=== PATIENT | male | born 1960 | race Caucasian/White ===

== ENCOUNTER 2024-02-25 19:05 | Inpatient (IN) | payer OTHER, SELFPAY ==
[2024-02-25] VITALS (11 sets, daily range): BP systolic 100–157; BP diastolic 41–82; BMI 23.2
--- NOTE | 2024-02-25 17:57 | ED.GENMED ---
History of Present Illness
General
Chief Complaint: Heart Rate Problem
Source: patient and spouse
Exam Limitations: none
Time Seen by Provider: 02/25/24 17:48
Nursing documentation reviewed up to this point in time: agreed with
History of Present Illness
History of Present Illness:
63-year-old male with past medical history of hypertension, hyperlipidemia, atrial fibrillation on Eliquis (noncompliant) who presents to the emergency department with his for evaluation of shortness of breath and lightheadedness. Patient
reports that symptoms started 2 to 3 days ago and have been constant and worsening. Came to the emergency room today to be evaluated. He denies any chest pain. He denies any swelling or pain in the legs. He denies any cough or fever. He denies
any other complaints. Noted to be markedly bradycardic in triage�previously on metoprolol but he reports he has not been taking this medication for quite some time.
Past History
Past History
ED Past Medical History: Arrthythmia (AFib), CHF, COPD, GERD and HTN; Negative Renal failure
ED Past Surgical History: Cardiac (ablation x 2) and Other (left eye removed 2 to trauma)
Social History
Tobacco: Smoker
Alcohol: Chronic alcoholic (States last drink 12/29/2022)
Drug: None
Personal:
Living: with family
Family History
Family History: Negative Diabetes, Hypertension or CAD
Review of Systems
Review of Systems
All Other Systems: ROS reviewed and negative except as documented in HPI and ROS
Constitutional: Reports fatigue; Denies fever
Respiratory: Reports trouble breathing; Denies cough
Cardiac: Denies chest pain or palpitations
ABD/GI: Denies abdominal pain
: Denies flank pain
Musculoskeletal: Denies edema, neck pain or back pain
Neurological: Reports dizzy; Denies headache
Phy Exam
Physical Exam
Physical Exam:
General: Awake, alert, oriented x3; no acute distress
Head: Normocephalic, atraumatic
Eyes: Conjunctiva normal
Throat: Airway intact, handling secretions
Neck: Trachea midline, no JVD
Lungs: Clear to auscultation bilaterally, no wheezing, rales, rhonchi
Heart: Bradycardia with regular rhythm, no murmurs, gallops, or rubs
Neuro: No gross deficits
Extremities: No edema in extremities, equal pulses in all extremities
Course
Orders/Labs/Results
Orders:
Orders
02/25/24 17:40
EKG [Electrocardiogram (*1)] Urgent
Reason for Study: Shortness of Breath
EKG- Treatment ONCE
02/25/24 17:49
Complete Blood Count/With Diff Urgent
Comprehensive Metabolic Panel Urgent
PTT Urgent
Prothrombin Time Urgent
TSH Reflex To Free T4 Urgent
Troponin I Urgent
02/25/24 17:51
Atropine Sulfate [Atropine 0.1 mg/ml Syringe] 1 mg .ROUTE .STK-MED ONE
02/25/24 17:57
CARDIOLOGY CONSULT Urgent
Consulting Provider: Zay Jenkins
Was physician already notified: Yes
Vital Signs
Initial and Last Documented VS:
Initial Vital Signs
Pulse Resp Pulse Ox
34 14 100
02/25/24 17:48 02/25/24 17:48 02/25/24 17:48
Last Documented Vital Signs
Temp Pulse Resp BP Pulse Ox
36.7 C 32 9 157/59 100
02/25/24 17:49 02/25/24 17:52 02/25/24 17:52 02/25/24 17:52 02/25/24 17:52
MDM/Problems Addressed
Differential Diagnosis Includes:
Complete heart block
MDM/Problems Addressed:
63-year-old male with history as documented presents to the emergency room with shortness of breath and lightheadedness; his EKG in triage shows complete heart block with a heart rate of 35. He was immediately brought back to a room, pacer pads
applied. Placed on a supply chain logistics manager. Large-bore IV access established will send off labs including a CBC and a CMP, thyroid studies. Case was discussed with cardiology and interventionalist�plan to take to [facility] for temporary pacemaker
tonight. Case discussed with hospitalist for admission.
Chronic conditions affecting care:
Atrial fibrillation
*Pulse Oximetry
Patient hypoxic: no
*EKG
Interpreted by ED Provider?: Yes
Heart Rate: 35
Rate: bradycardiac
Rhythm: sinus
[place]: left axis deviation
Interval: third degree heart block
*Critical Care Note
Total Time (30-74mins, 75-104mins- exclusive of procedures): 31
comment:
Critical care statement: A total of 31 minutes of critical care time was provided for this patient. This includes management of unstable vital signs, evaluation of the patient at bedside, frequent reassessment, discussion with
consultants/hospitalist, and review of pertinent medical records. This time was separate from time utilized to perform any aforementioned documented procedures
Data Reviewed
Review of Other/Old Records Reveals: Labs and Records
Source: patient, records and spouse
Patient Management
Discussion with other providers: Hospitalist (Discussed with hospitalist) and In Classroom Tutor (Discussed with web marketing strategist)
Escalation/DeEscalation of care consider admission/obs:
Admission indicated
ED Attending Note
-
Portions of this chart may have been created with voice recognition software.� Occasional wrong word or��sound alike� substitutions may have occurred due to the inherent limitations of voice recognition software.
Discharge Plan
Departure
Patient Disposition: Admit
Date of Disposition: 02/25/24
Time of Disposition: 17:56
Admit to doctor: Jose
Presentation/result/management discussed w/ accepting MD/DO: Hospitalist
Discharge Problem:
Complete heart block
Prescriptions:
No Action
Eliquis 5 mg tablet
5 mg PO BID Qty: 1 0RF
pantoprazole 40 mg Tablet,Delayed Release (Dr/Ec)
40 mg PO DAILY 30 Days Qty: 30 0RF
furosemide [Lasix] 20 mg Tablet
20 mg PO DAILY
albuterol sulfate [ProAir HFA] 90 mcg/actuation HFA aerosol inhaler
2 puff inhalation R Q6HPRN PRN (Reason: shortness of breath or wheezing)
nicotine 14 mg/24 hr Patch 24 Hour
14 mg transdermal DAILY Qty: 0 0RF
thiamine HCl (vitamin B1) 100 mg Tablet
100 mg PO DAILY Qty: 30 0RF
metoprolol succinate 50 mg tablet extended release 24 hr
50 mg PO DAILY Qty: 0 0RF
Interventions
Interventions:
*Risk Screen - Suicide Last Done: 02/25/24 17:49
*General Assessment Last Done: 02/25/24 17:49
*Neglect/Abuse Screening Last Done: 02/25/24 17:49
ED- Fall Risk Assessment Last Done: 02/25/24 17:49
*ED COVID-19 Vaccine History Last Done: 02/25/24 17:49
ED- Cardiac Assessment Last Done: 02/25/24 17:55
ED- Pulmonary Assessment Last Done: 02/25/24 17:56
Discharge Date and Time
Print Language: ITALIAN
[2024-02-25 18:05] LABS: % Basophils 0.7 % (0-2); % Eosinophils 3.2 % (0-6); % Immature Granulocytes 0.4 % (0-0.5); % Lymphocytes 22.7 % (20.5-51.1); % Monocytes 13.3 % (1.7-9.3); % Neutrophils 59.7 % (42.2-75.2); Absolute Basophils 0.1 10^3/uL (0-0.2); Absolute Eosinophils 0.3 10^3/uL (0-0.7); Absolute Lymphocytes 2.2 10^3/uL (1.2-3.4); Absolute Monocytes 1.3 10^3/uL (0.1-0.6); Absolute Neutrophils 5.7 10^3/uL (1.4-6.5); Hematocrit 34.6 % (39.0-52.0); Hemoglobin 11.9 g/dL (13.0-18.0); Mean Corp Hgb Conc. 34.4 g/dL (33.0-37.0); Mean Corpuscular Hgb 33.1 pg (27.0-31.0); Mean Corpuscular Volume 96.1 fL (80.0-94.0); Mean Platelet Volume 10.4 fL (7.4-10.4); Nucleated Red Blood Cells % 0 % (-); Platelet Count 148 10^3/uL (130-400); Red Cell Dist. Width 15.2 % (11.5-14.5); White Blood Cell Count 9.6 10^3/uL (4.8-10.8)
--- NOTE | 2024-02-25 18:05 | CON.CAR ---
Consultation
Consultation Request
Date/Time Consultation Requested: 02/25/2024;
Date/Time Consultation Performed: 02/25/2024; 18:05
Requesting Provider: Tommy Oneal Jr., D.O.
Performing Provider: Mateo Moore D.O.
Reason for Consultation: Complete heart block.
Medical History
-
Chief Complaint: Shortness in breath with ambulation, prior syncope.
History of Present Illness:
63 y/o male with TBI (per MRI), alcohol use disorder, tobacco abuse with COPD, non-ischemic cardiomyopathy with HFmEF (LVEF 44%), AF/Flutter s/p ablation x2 ([facility] PVI on 12/08/2022, prior flutter ablation) and RBBB presenting with worsening shortness
in breath. The patient reports abrupt onset of symptoms yesterday, worsening today. He can no longer ambulate > 12 feet without severe shortness in breath. He admits to fatigue. He admits to orthostasis but denies syncope. His is present
and reports prior episodes of syncope in the past few months. The patient was previously hospitalized for syncope in January 2023. There was no obvious cardiac source at the time. He was continued on metoprolol and apixaban at that
time. The patient reports stopping all medications several months ago. On presentation, EKG showed complete heart block with ventricular escape at 35 bpm. Cardiology was consulted for assistance with management.
In the ER, the patient's weight is stable. BP stable with HR of 36 bpm. External pacing pads have been applied. He denies joint pains or rashes. He denies probability of tick exposure.
DATA:
TTE, 01/11/2023:
CONCLUSIONS
Normal LV size with mildly reduced systolic function.
Left ventricular ejection fraction is 44% by Olivo' s method.
Global hypokinesis.
Paradoxical septal motion consistent with conduction disease.
Indeterminate diastolic function.
Normal right ventricular size and function.
No significant valvular disease.
Compared to prior on December 24, 2022, there is no significant change.
MRI Brain, 01/12/2024:
IMPRESSION:
There is encephalomalacia and abnormal increased FLAIR signal within the inferior and anterior frontal lobes, left greater than right, compatible with changes from previous traumatic brain injury.
Patchy areas of volume loss and increased FLAIR signal within the left temporal lobe as well, which are most likely from previous traumatic brain injury.
Small focus of volume loss and increased FLAIR signal within the right paramedian parietal lobe. In this location, this is most likely from a small focus of old infarction, although posttraumatic injury could also be possible.
Moderate diffuse atrophy, advanced for the patient's age of 62 years.
Mild to moderate periventricular leukomalacia.
Cardiac Catheterization, 11/27/2021:
CONCLUSIONS
1: Normal coronary arteries
Past Medical History
Past Medical History: Arrhythmias (Atrial fibrillation/flutter, RBBB.), CHF and COPD
Past Surgical History: Cardiac (Aflutter ablation, [facility] PVI ablation.)
Social History
Tobacco: Smoker
Alcohol: Daily
Drug: None
Personal:
Living: With Family
Employment: Employed
Family History
Family History: Reviewed & Not Pertinent
Allergies / Home Medications
Allergy/AdvReac Type Severity Reaction Status Date / Time
No Known Allergies Allergy Verified 12/08/22 11:22
�Medication �Instructions �Recorded �Confirmed �Type
No Meds [No Current Medications] 02/25/24 02/25/24 History
Review of Systems
-
History Source: Patient and Family
All other systems: Negative unless noted
Constitutional: No Symptoms
EENT: No Symptoms
Respiratory: Trouble Breathing
Cardiac: Syncope
Abdomen/GI: No Symptoms
Musculoskeletal: No Symptoms
Skin: No Symptoms
Neurological: Dizzy
Physical Exam
Vital Signs
Temp Pulse Resp BP Pulse Ox
36.7 C 32 9 157/59 100
02/25/24 17:49 02/25/24 17:52 02/25/24 17:52 02/25/24 17:52 02/25/24 17:52
Physical Exam
General: Well Nourished, No Apparent Distress, Comfortable and Good Appetite
HEENT: Normocephalic, Anicteric and Moist Mucous Membranes
Respiratory: Clear and Non Labored Respirations
Cardiac: S1/S2 and Regular Rhythm
Breast: Deferred by me
GI: Soft, Non Tender, Non Distended and Normal Bowel Sounds
Rectal: Deferred by Provider
Genito-urinary: No Costovertebral Tender
Musculoskeletal: No Clubbing, No Cyanosis and No Edema
Skin: Warm and Dry
Neuro: AO x 3
Hematologic/Lymphatic: No Lymphadenopathy
Psych: Calm
Impression / Plan
-
Impression/Plan: 63 y/o male with TBI, NICMO/HFmEF (LVEF = 44%), tobacco abuse, AF/Flutter s/p ablation x2 now admitted with symptomatic complete heart block.
#Complete heart block
-Acute.
-Prior EKGs showed RBBB with extreme RAD.
-Check Lyme titre.
-Echocardiogram.
-To cork slabs sawyer for TPM.
-Consent is signed and on the chart.
#NICMO/HFmEF
-Chronic.
-Currently euvolemic.
-Not currently on GDMT.
-Restart metoprolol after PPM.
#Atrial fibrillation/flutter
-Paroxysmal.
-Currently in NSR with complete heart block.
-CHADS2-Vasc = 1 (CHF).
-Not currently on OAT.
-We will re-address this after PPM.
#COPD
#Tobacco abuse
#Alcohol use disorder
Data Reviewed
-
EKG: Tracing Personally Visualized and interpreted, Report Reviewed by me, Discussed with Physician, Discussed with Patient and Discussed with Family
Medical Tests (Nuc Med, Echo etc): Image Personally Visualized and interpreted, Report Reviewed by me and Discussed with Physician
Labs: Labs Reviewed by me, Discussed with Physician and Discussed with Patient
Old Records: Reviewed
--- NOTE | 2024-02-25 18:15 | HPS.HSE ---
Family Physician
-
Family Physician:
Chief Complaint
-
Shortness of Breath and Dizziness
History of Present Illness
Patient is a 63 y/o male past medical history of CHF, A-fib, and COPD who presents with shortness of breath and dizziness. Patient reports over the past 2-3 days he has been experiencing worsening shortness of breath and dizziness. He notes
dizziness if particularly worse when stands up. He denies any chest pains, or palpitations. Upon arrival to the emergency department patient was found to have marked bradycardia, and ECG consistent with complete heart block.
Medical History
Past Medical History
Past Medical History: Reports Other
Additional Past Medical History:
Chronic HFmrEF
Cardiomyopathy
Paroxysmal Atrial Fibrillation / Flutter
COPD
TBI
Alcohol Abuse
Past Surgical History: Reports Other
Additional Past Surgical History:
Cardiac Ablation
Social History
Tobacco: Smoker (1 ppd)
Alcohol: Occasional (Patient reports about 4 drinks a few times a week)
Family History
Family History: Not pertinent
Allergies / Home Medications
Allergies reflects when Allergies were last updated in [facility].
Home Medications with original date entered in [facility]
Allergy/Medication List:
Allergies
Allergy/AdvReac Type Severity Reaction Status Date / Time
No Known Allergies Allergy Verified 12/08/22 11:22
Home Medications
No Meds [No Current Medications] 02/25/24
Review of Systems
-
A 12 point ROS was completed and negative except as noted: Yes
Constitutional: Denies Fever or Chills
Respiratory: Denies Cough or Trouble Breathing
Cardiac: Denies Chest Pain or Palpitations
Physical Exam
Vital Signs
Vital Signs
Temp Pulse Resp BP Pulse Ox
98.1 F 36 13 144/41 100
02/25/24 17:49 02/25/24 18:00 02/25/24 18:00 02/25/24 18:00 02/25/24 18:00
Physical Exam
General: Comfortable and Conversant
HEENT: Anicteric and Moist mucous membranes
Respiratory: Wheezes (Diffuse)
Cardiac: S1/S2 and Other (Marked Bradycardia; Pacer pads in place)
GI: Soft and Non Tender
Rectal: Deferred by Provider
Musculoskeletal: No Clubbing, No Cyanosis and No Edema
Skin: Warm and Dry
Neuro: Awake, Alert, Oriented and Nonfocal/grossly intact
Psych: Calm
Laboratory Results
-
02/25/24 17:59
Data Reviewed
-
Medical Tests (Nuc Med, Echo, EKG etc): Report Reviewed by me
Lab Data: Labs Reviewed by me
Old Records: Reviewed
Impression/Plan
-
Completed Heart Block
-Consult Cardiology
-Plan for temporary pacemaker this evening
-Check Lyme titer and blood cultures
Chronic HFmrEF
-Patient no longer taking diuretics
-Monitor Is&Os and Daily Weights
Paroxysmal Atrial Fibrillation / Flutter s/p Ablation
-Patient not on anticoagulation as outpatient
-Monitor on Telemetry
COPD
-Patient stopped inhalers
-Add DuoNeb prn
Alcohol Use Disorder
-Continue thiamine and folic acid
-Monitor for alcohol withdrawal
Nicotine Dependence
-Continue Nicotine Patch
-Encourage smoking cessation
DVT Proph: Lovenox
Code Status: Full Code
[2024-02-25 18:16] LABS: APTT 30.4 Sec (23.4-35.0); INR 0.96
[2024-02-25 18:19] LABS: ALT (SGPT) 25 U/L (0-50); AST (SGOT) 39 U/L (17-59); Albumin 5.2 g/dl (3.5-5.0); Alkaline Phosphatase 57 U/L (38-126); Blood Urea Nitrogen 28 mg/dl (9-20); Calcium 9.9 mg/dl (8.4-10.2); Carbon Dioxide 20 mmol/L (22-30); Chloride 100 mmol/L (98-107); Estimated Creatinine Clearance 75 ml/min; Glucose 81 mg/dl (70-99); Potassium 4.6 mmol/L (3.5-5.1); Sodium 137 mmol/L (135-145); Total Protein 8.3 g/dl (6.3-8.2); eGFR > 60.00
[2024-02-25 18:30] LABS: Troponin I < 0.012 ng/ml
--- NOTE | 2024-02-25 19:22 | W.PN.UPDATE ---
Update Note
Progress Note Update
This is an addendum to H&P written by Meeta Win on 02/25/2024. Patient seen and examined independently with PA.
63-year-old male past medical history of paroxysmal atrial fibrillation/flutter status post ablation supposed to be on Eliquis, nonischemic cardiomyopathy, HFrEF, COPD, GERD, alcohol use disorder, presenting with shortness of breath/lightheadedness
over the past 2 to 3 days. Found to be severely bradycardic with heart rate in 20s with complete heart block.
Patient supposed to be on metoprolol but has not been compliant with any of his medications.
Cardiology planning on temporary pacemaker at this time. TSH, Lyme's test, blood cultures, magnesium level pending. Alcohol withdrawal protocol due to likely significant alcohol use. Resume albuterol inhaler. Patient will need to eventually
restart Eliquis and possibly Lasix as well.
[2024-02-25 19:25] LABS: Magnesium 1.6 mg/dl (1.6-2.3)
--- NOTE | 2024-02-25 19:38 | ITS.CL.PN ---
Board Member - Procedure Note
Procedure
Procedure Note:
Temporary Pacemaker Insertion
Date: 02/25/2024
Referring: Tommy Oneal Jr., M.D.
Indication: Complete heart block
Access:
8.5 Irish right internal jugular vein using a micropuncture kit under ultrasound guidance via a modified Seldinger technique.
Pacemaker Information:
Position: Right ventricular interventricular septum.
Current (mA): 20
Rate (bpm): 80
Procedure:
The patient's right neck and inguinal areas were prepped and draped and standard sterile fashion. The the right neck was anesthetized with 1% lidocaine. The right internal jugular vein was punctured with a micropuncture needle under ultrasound
guidance using a modified Seldinger technique. Fluoroscopy confirmed satisfactory sheath position. The site was serially dilated and an 8.5 Irish Arrow sheath was inserted then sutured in place. A temporary pacemaker wire was covered with a
sterile cover, then inserted through the 8.5 Irish sheath. The tip of the pacemaker was advanced into the apex of the right ventricle. The pacemaker was turned on at 100 bpm at 20 mA. The current was serially decreased showing good capture at 1
mA. The current was increased to 20 mA and the rate decreased to VVI 80 bpm. The sterile cover was secured and the sheath was covered with two opposing tegaderm dressings. A third tegaderm secured the body of the temporary pacemaker just below
the right clavicle. A fourth Tegaderm was placed at the distal edge of the catheter cover where the temporary pacer wire emerges. The patient was transferred to CVICU in stable condition.
Radiation (mGy): 7.93
Dose Area Product (Gy*cm2): 1.0735
Fluoroscopy Time (minutes): 0.8
Conclusions:
1. Successful placement of a temporoary pacemaker via right internal jugular approach without acute complications.
Recommendations:
1. Minimal manipulation of the right internal jugular wire to avoid potential dislodgement.
2. Discussion with EP regarding medical management vs. permanent device.
Copy to: Tommy Oneal Jr., M.D., Alem Adams M.D., Zay Jenkins M.D.
--- NOTE | 2024-02-25 20:00 | PTCARENOTE ---
Received pt from lab rep, post placement of t
--- NOTE | 2024-02-25 20:00 | PTCARENOTE ---
Received pt from cathode builder, post transvenous temp V pacer placement. pt is AAOx4 denies pain. 100% V-paced on monitor with occasional PVCs, VSS. heart sounds audible, radial and DP pulses palpable, no edema noted, temp pacer located via right IJ is
set to a rate of 80, MA of 20, Mv of 3. lung sounds clear, 99% on RA. pt yet to voiding since being transferred to CVICU, will continue to monitor. +BS x 4 quadrants, abdomen soft non tender. Right IJ pacer site maintained. right IJ cordis and PIV
maintained. call ahumada within reach. awaiting further orders.
[2024-02-25] MEDS: NSS 500 VEN SHEATH (20:09)
[2024-02-25 20:18] LABS: Phosphorus 2.3 mg/dl (2.5-4.5)
[2024-02-25] MEDS: MAGNESIUM SULFATE 100 IV (20:52)
[2024-02-25 21:09] LABS: TSH Reflex To Free T4 2.08 uIU/ml (0.47-4.68)
[2024-02-25] MEDS: SODIUM PHOSPHATE 255 MEQ IV (21:57)
[2024-02-25] MEDS: THIAMINE INJECTION 200 MG IV (21:58)
[2024-02-26] VITALS (32 sets, daily range): BP systolic 85–127; BP diastolic 45–80; BMI 23.3
--- NOTE | 2024-02-26 00:18 | PTCARENOTE ---
Pt assessment unchanged. pt resting comfortably in bed. nate pain. 100% V-paced on monitor. VSS.
--- NOTE | 2024-02-26 04:00 | PTCARENOTE ---
Pt has been having more frequent PVCs. at 0400 pacer lost capture, followed by a run of Vtach. pt BP was stable. pacer pacing again. labs drawn and sent. amio bolus and 1g mag rider was ordered.
[2024-02-26 04:31] LABS: Hematocrit 29.8 % (39.0-52.0); Hemoglobin 10.1 g/dL (13.0-18.0); Mean Corp Hgb Conc. 33.9 g/dL (33.0-37.0); Mean Corpuscular Hgb 32.6 pg (27.0-31.0); Mean Corpuscular Volume 96.1 fL (80.0-94.0); Mean Platelet Volume 10.5 fL (7.4-10.4); Platelet Count 123 10^3/uL (130-400); Red Cell Dist. Width 15.1 % (11.5-14.5); White Blood Cell Count 6.7 10^3/uL (4.8-10.8)
[2024-02-26 04:34] LABS: Blood Urea Nitrogen 25 mg/dl (9-20); Calcium 8.8 mg/dl (8.4-10.2); Carbon Dioxide 22 mmol/L (22-30); Chloride 103 mmol/L (98-107); Estimated Creatinine Clearance 92 ml/min; Glucose 84 mg/dl (70-99); Magnesium 1.8 mg/dl (1.6-2.3); Phosphorus 3.5 mg/dl (2.5-4.5); Potassium 4.2 mmol/L (3.5-5.1); Sodium 136 mmol/L (135-145); eGFR > 60.00
[2024-02-26] MEDS: MAGNESIUM SULFATE 102 GRAMS IV (04:44)
[2024-02-26] MEDS: CORDARONE 103 MG IV (04:49)
--- NOTE | 2024-02-26 04:53 | W.PN.UPDATE ---
Update Note
Progress Note Update
-at 4 am pt had several runs of NSVT 6-7 beats long with v-paced beats in-between. He was asymptomatic, BP 127/80, not hypoxic with pOx 99%.
-am labs with K 4.2, Mg 1.8, Ca 8.8.
-will give 1 g Mg to keep Mg level >2 and Amio bolus
-R2 pads placed.
-CXR to eval pw position
-discussed with Dr. Jenkins
[2024-02-26] MEDS: NICODERM TRANSDERMAL 14 MG TRANSDERM (08:57)
[2024-02-26] MEDS: FOLVITE 1 MG PO (08:57)
[2024-02-26] MEDS: THIAMINE INJECTION 200 MG IV ×2 (08:57→21:05)
[2024-02-26] MEDS: NSS 500 VEN SHEATH (08:57)
--- NOTE | 2024-02-26 09:00 | PTCARENOTE ---
Assumed care of patient. Walking rounds completed with previous RN. Pt assessed while he was lying in bed. Pt alert and oriented x4. Denies pain, shortness of breath, nausea. ALMONTE with equal strength throughout. 100% v-paced with PVCs on tele with
rate at 80bpm. BP 118/79. Bilateral radial and DP pulses palpable. No edema noted. POX 98% on RA. Lungs clear throughout. No cough noted. Abdomen soft, nontender. +BS. Last BM yesterday. Due to void for this RN. Tolerating diet. Right IJ cordis
intact with temporary transveous v-wire with appropriate pacing set to VVI 80/20/3. Right AC 20g PIV intact. See MAR for medication administration. See worklist for complete nursing assessment. Plan of care reviewed and patient in agreement.
--- NOTE | 2024-02-26 11:03 | W.PN.CD ---
Today's Communication / Plan
-
PPM Wednesday
Resuming metoprolol
Impression / Plan
-
Impression/Plan: 63 y/o male with TBI, NICMO/HFmEF (LVEF = 44%), tobacco abuse, AF/Flutter s/p ablation x2 now admitted with symptomatic complete heart block.
#Complete heart block
-Acute.
-Prior EKGs showed RBBB with extreme RAD.
-Check Lyme titre.
- outpatient MRI after PPM to r/o infiltrative disease
-Echocardiogram.
-To slab lifting supervisor for TPM.
-PPM Wednesday
- had NSVT overnight amio IV bolus given, restarted home metop
#NICMO/HFmEF
-Chronic.
-Currently euvolemic.
-Not currently on GDMT.
-Restarted Metoprolol tartrate 25 mg bid, plan to change back to XL after PPM in
- Echo Wednesday
#Atrial fibrillation/flutter
-Paroxysmal.
-Currently in NSR with complete heart block.
-CHADS2-Vasc = 1 (CHF).
-Not currently on OAT.
-We will re-address this after PPM.
#COPD
#Tobacco abuse
#Alcohol use disorder
Subjective: Feeling better
Physical Exam
Vital Signs/Labs
Vital Signs
Temp Pulse Resp BP Pulse Ox
98.2 F 83 10 118/79 98
02/26/24 08:00 02/26/24 09:00 02/26/24 09:00 02/26/24 09:00 02/26/24 09:00
02/25/24 02/26/24 02/27/24
06:59 06:59 06:59
Actual Weight 171 lb 11.841 oz
02/26/24 04:09
02/26/24 04:09
PT 13.0 Sec (11.4-14.6) 02/25/24 17:59
INR 0.96 02/25/24 17:59
APTT 30.4 Sec (23.4-35.0) 02/25/24 17:59
Magnesium 1.8 mg/dl (1.6-2.3) 02/26/24 04:09
LAB Results
02/25/24
17:59
Troponin I < 0.012
Physical Exam
Constitutional: No acute distress
EENT: Anicteric
Cardiovascular: Rhythm & rate is regular and Pedal edema is absent
Respiratory: Respiratory effort normal and Lungs clear to auscul.
GI: Soft
Neuro/Psych: AO x 3
Data Reviewed
-
Date of Service: February 26, 2024
EKG: Tracing Personally Visualized and interpreted (paced)
Echo: Report Reviewed by me
Labs: Labs Reviewed by me
--- NOTE | 2024-02-26 11:16 | W.PN.HOSP.TC ---
Today's Communication/Plan
-
PPM 02/28/24
Assessment / Plan
Assessment / Plan
Gen: NAD, AAOx3.
Eyes: EOMI, PERRLA, no scleral icterus.
Neck: supple.
CV: RRR, +S1/S2, no m/r/g.
Resp: CTAB, no rales, wheezes, or rhonchi.
Abd: +BS, soft, NT, ND
Skin: No rashes.
Neuro: CN 2-12 intact, non-focal.
Psych: Normal mood and affect.
Completed Heart Block:
-cards following
-s/p temporary pacemaker via R-IJ
-plan for PPM 02/28/24
-Check Lyme titer and blood cultures
Chronic HFmrEF
-Patient no longer taking diuretics
-Monitor Is&Os and Daily Weights
Paroxysmal Atrial Fibrillation / Flutter s/p Ablation
-Patient not on anticoagulation as outpatient
-Monitor on Telemetry
COPD
-Patient stopped inhalers
-Add DuoNeb prn
Alcohol Use Disorder
-Continue thiamine and folic acid
-Monitor for alcohol withdrawal
-MSAS protocol
Nicotine Dependence
-Continue Nicotine Patch
-Encourage smoking cessation
FULL/Lovenox
Anticipated Discharge: > 48 hours
Subjective/Interval History
-
Date of Service: February 26, 2024
Pt c/o lightheadedness, denies CP/SOB.
Objective Data
-
Labs:
Laboratory Results
02/26/24
04:09
WBC 6.7
Hgb 10.1 L
Hct 29.8 L
Plt Count 123 L
Sodium 136
Potassium 4.2
Chloride 103
Carbon Dioxide 22
BUN 25 H
Creatinine 0.9
Glucose 84
Calcium 8.8
Vital Signs:
Vital Signs
Temp Pulse Resp BP Pulse Ox
98.2 F 78 14 96/62 98
02/26/24 08:00 02/26/24 11:00 02/26/24 11:00 02/26/24 11:00 02/26/24 11:00
I&O
02/25/24 02/26/24 02/27/24
06:59 06:59 06:59
Intake Total 240 / 240
Output Total 375 / 375 350 / 350
Balance -375 / -375 -110 / -110
--- NOTE | 2024-02-26 11:36 | PTCARENOTE ---
Pt reassessed. States he feels slightly lightheaded. BP 101/73. 100% v-paced, occasional PVCs. Dr. Jenkins notified, holding metoprolol for now. Bedrest maintained. Pt voided mohit urine in the urinal. Emotional support provided.
--- NOTE | 2024-02-26 16:00 | PTCARENOTE ---
Pt reassess. 100% v-paced with PVCs increasing in frequency. BP 105/60. POX 98% on RA. Pt states intermittent lightheadedness. Resting in bed comfortably. Emotional support provided.
--- NOTE | 2024-02-26 16:30 | PTCARENOTE ---
Significant ectopy noted on tele (v-paced beat, PVC, v-paced beat, PVC). Temp pacer turned down to 60bpm. Ectopy resolved. BP 105/68. Pt denies additional lightheadedness. Dr. Jenkins notified.
[2024-02-26] MEDS: LOVENOX 40 MG SC (17:54)
--- NOTE | 2024-02-26 20:30 | PTCARENOTE ---
assumed care of pt from previous RN. pt A&Ox4. bedrest w/ temp pacing wires. R IJ cordis w/ KVO and temp pacing wires. 100% V-paced w/ temp transvenous pacer. settings VVI 60/20/3. palpable peripheral pulses. POX 98% on RA. abd s/n, +BS. voiding in
urinal. PIV intact. see worklist for complete nursing assessment, interventions, VS, and I&Os.
[2024-02-26] MEDS: LOPRESSOR 12.5 MG PO (21:05)
[2024-02-26] MEDS: MELATONIN 5 MG PO (21:16)
[2024-02-27] VITALS (24 sets, daily range): BP systolic 85–121; BP diastolic 48–81; BMI 23.1
--- NOTE | 2024-02-27 00:20 | PTCARENOTE ---
assessment remains unchanged. VSS. 100% Vpaced w/ temp pacing wires
[2024-02-27] MEDS: NSS 500 VEN SHEATH (03:43)
--- NOTE | 2024-02-27 03:45 | PTCARENOTE ---
assessment remains unchanged. VSS. 100% v-paced w/ temp pacing wires. AM labs collected and sent.
[2024-02-27 04:15] LABS: Hematocrit 30.6 % (39.0-52.0); Hemoglobin 10.3 g/dL (13.0-18.0); Mean Corp Hgb Conc. 33.7 g/dL (33.0-37.0); Mean Corpuscular Volume 98.1 fL (80.0-94.0); Mean Platelet Volume 10.8 fL (7.4-10.4); Platelet Count 108 10^3/uL (130-400); Red Blood Cell Count 3.12 10^6/uL (4.70-6.10); Red Cell Dist. Width 14.8 % (11.5-14.5); White Blood Cell Count 7.5 10^3/uL (4.8-10.8)
[2024-02-27 04:22] LABS: Blood Urea Nitrogen 23 mg/dl (9-20); Calcium 8.7 mg/dl (8.4-10.2); Carbon Dioxide 21 mmol/L (22-30); Chloride 104 mmol/L (98-107); Estimated Creatinine Clearance 83 ml/min; Glucose 94 mg/dl (70-99); Magnesium 1.8 mg/dl (1.6-2.3); Potassium 4.4 mmol/L (3.5-5.1); Sodium 137 mmol/L (135-145); eGFR > 60.00
[2024-02-27 05:02] LABS: Erythrocyte Sed Rate 36 mm/hour (0-20)
[2024-02-27] MEDS: NSS IV (08:21)
[2024-02-27] MEDS: THIAMINE INJECTION 200 MG IV ×2 (08:21→20:18)
[2024-02-27] MEDS: NICODERM TRANSDERMAL 14 MG TRANSDERM (08:21)
[2024-02-27] MEDS: LOPRESSOR 12.5 MG PO ×2 (08:22→20:19)
[2024-02-27] MEDS: FOLVITE 1 MG PO (08:22)
--- NOTE | 2024-02-27 08:30 | PTCARENOTE ---
Assumed care of patient at 0700. Pt is awake, alert, and oriented. No complaints of pain. Pt 100% V paced, transvenous pacer set to VVI 60/20/3. BP 109/71 MAP 83. Pulses palpable. Pulse oximetry 100% on room air. Pt tolerating PO diet. Voiding in
urinal without issue. Right IJ cordis with transvenous pacer intact, dressing reinforced. Pt remains on bedrest at this time.
--- NOTE | 2024-02-27 08:55 | W.PN.CD ---
Today's Communication / Plan
-
NPO after midnight for PPM
Impression / Plan
-
Impression/Plan: 63 y/o male with TBI, NICMO/HFmEF (LVEF = 44%), tobacco abuse, AF/Flutter s/p ablation x2 now admitted with symptomatic complete heart block.
#Complete heart block
-Acute.
-Prior EKGs showed RBBB with extreme RAD.
-Check Lyme titre.
- outpatient MRI after PPM to r/o infiltrative disease
-Echocardiogram.
-To analyst microbiology lab for TPM.
-PPM Wednesday
- had NSVT overnight amio IV bolus given, restarted home metop
#NICMO/HFmEF
-Chronic.
-Currently euvolemic.
-Not currently on GDMT.
-Restarted Metoprolol tartrate 12.5 mg bid, plan to change back to XL after PPM in
- Echo Wednesday
- should have cardiac MRI at some point to r/o ifiltrative [facility] DIRECTOR
#Atrial fibrillation/flutter
-Paroxysmal.
-Currently in NSR with complete heart block.
-CHADS2-Vasc = 1 (CHF).
-Not currently on OAT.
-We will re-address this after PPM.
#COPD
#Tobacco abuse
#Alcohol use disorder
Subjective: Feeling better
Physical Exam
Vital Signs/Labs
Vital Signs
Temp Pulse Resp BP Pulse Ox
97.9 F 65 18 109/71 100
02/27/24 08:00 02/27/24 08:00 02/27/24 08:00 02/27/24 08:00 02/27/24 08:00
02/26/24 02/27/24 02/28/24
06:59 06:59 06:59
Actual Weight 171 lb 11.841 oz 170 lb 6.677 oz
02/27/24 03:40
02/27/24 03:40
PT 13.0 Sec (11.4-14.6) 02/25/24 17:59
INR 0.96 02/25/24 17:59
APTT 30.4 Sec (23.4-35.0) 02/25/24 17:59
Magnesium 1.8 mg/dl (1.6-2.3) 02/27/24 03:40
LAB Results
02/25/24
17:59
Troponin I < 0.012
Physical Exam
Constitutional: No acute distress and Comfortable
EENT: Anicteric
Cardiovascular: Rhythm & rate is regular and Pedal edema is absent
Respiratory: Respiratory effort normal and Lungs clear to auscul.
GI: Soft
Neuro/Psych: AO x 3
Data Reviewed
-
Date of Service: February 27, 2024
EKG: Tracing Personally Visualized and interpreted (paced)
Echo: Report Reviewed by me
Labs: Labs Reviewed by me
--- NOTE | 2024-02-27 08:57 | W.PN.HOSP.TC ---
Today's Communication/Plan
-
see bold
Assessment / Plan
Assessment / Plan
Gen: NAD, AAOx3.
Eyes: EOMI, PERRLA, no scleral icterus.
Neck: supple.
CV: remains RRR, +S1/S2, no m/r/g.
Resp: remains CTAB, no rales, wheezes, or rhonchi.
Abd: remains +BS, soft, NT, ND
Skin: No rashes.
Neuro: CN 2-12 intact, non-focal.
Psych: Normal mood and affect.
Completed Heart Block:
-cards following
-s/p temporary pacemaker via R-IJ
-plan for PPM 02/28/24
-Check Lyme titer and blood cultures
Chronic HFmrEF
-Patient no longer taking diuretics
-Monitor Is&Os and Daily Weights
Paroxysmal Atrial Fibrillation / Flutter s/p Ablation
-Patient not on anticoagulation as outpatient
-Monitor on Telemetry
COPD
-Patient stopped inhalers
-DuoNeb prn
Alcohol Use Disorder
-Continue thiamine and folic acid
-Monitor for alcohol withdrawal
-MSAS protocol
Nicotine Dependence
-Continue Nicotine Patch
-Encourage smoking cessation
FULL/Lovenox
Anticipated Discharge: 24 - 48 hours
Subjective/Interval History
-
Date of Service: February 27, 2024
Denies CP/SOB.
Objective Data
-
Labs:
Laboratory Results
02/27/24
03:40
WBC 7.5
Hgb 10.3 L
Hct 30.6 L
Plt Count 108 L
Sodium 137
Potassium 4.4
Chloride 104
Carbon Dioxide 21 L
BUN 23 H
Creatinine 1.0
Glucose 94
Calcium 8.7
Vital Signs:
Vital Signs
Temp Pulse Resp BP Pulse Ox
97.9 F 65 18 109/71 100
02/27/24 08:00 02/27/24 08:00 02/27/24 08:00 02/27/24 08:00 02/27/24 08:00
I&O
02/26/24 02/27/24 02/28/24
06:59 06:59 06:59
Intake Total 1020 / 1020 60 / 60
Output Total 375 / 375 950 / 950
Balance -375 / -375 70 / 70 60 / 60
--- NOTE | 2024-02-27 13:00 | PTCARENOTE ---
No changes in assessment. Pt remains 100% V paced with HR 60. BP 101/63 MAP 73. Pulse oximetry 100% on room air.
--- NOTE | 2024-02-27 16:05 | PTCARENOTE ---
Pt with occasional runs PVCs. Currently 100% V paced with HR 60. BP 121/67 MAP 83. Pulse oximetry 98% on room air. Pt continues to turn and reposition self in bed. Pt washed face and brushed teeth.
[2024-02-27] MEDS: LOVENOX 40 MG SC (17:31)
[2024-02-27] MEDS: NSS 500 IV (17:32)
--- NOTE | 2024-02-27 20:00 | PTCARENOTE ---
assumed care of pt from previous RN. pt A&Ox4, on bedrest w/ temp transvenous pacing wires. R IJ cordis w/ temp pacing wires. 100% v-paced w/ settings VVI 60/20/3. occasional PVCs. POX 98% on RA. abd s/n, +BS. voiding mohit urine in urinal. PIV
intact. see worklist for complete nursing assessment, interventions, VS, and I&Os.
--- NOTE | 2024-02-27 22:00 | PTCARENOTE ---
pt clipped and prepped for CCL tomorrow for PPM. wiped w/ CHG wipes. sheets and gown changed. pt verbalizes understanding of NPO at 0000.
[2024-02-27] MEDS: DESYREL 12.5 MG PO (22:14)
[2024-02-28] VITALS (33 sets, daily range): BP systolic 87–135; BP diastolic 52–104; BMI 23.1
--- NOTE | 2024-02-28 | PTCARENOTE ---
assessment remains unchanged. VSS. NPO for CCL.
--- NOTE | 2024-02-28 04:40 | PTCARENOTE ---
assessment remains unchanged. VSS.
--- NOTE | 2024-02-28 07:00 | PTCARENOTE ---
Bedside walking rounds report received: patient seen on rounds on bedrest on room air and tolerating well. NSR with 1st degree avb/bbb/pvc's and occasional v pacing via right IJ venous sheath 60bpm/20ma with a sensitivity of 1. Mobitz 2 block noted
when v paced. Denies pain. See flowrecord for remaining assessments.
--- NOTE | 2024-02-28 08:30 | CARDSERVLU ---
Echocardiogram with Lumason completed after protocol screening completed. Allergies verified.
Patent IV site: Rt FA
IV site flushed with 0.9% NaCl pre and post administration.
Diluted bolus method utilized to enhance visualization of ventricular carter.
Total volume given: 3.0____ mL
Patient tolerated all procedures well without complications.
--- NOTE | 2024-02-28 09:00 | SUR.OPER ---
Dr. Spangler here and call from crime lab analyst ANNAMARIE Perry: Report given: patient will have PPM/AICD placed. New #20ga safety IV established x 1 attempt to left AC: positive and brisk blood return. Patient to cath EP lab at 0930am.
--- NOTE | 2024-02-28 09:40 | W.PN.HOSP.TC ---
Addendum entered and electronically signed by Alem Lundberg MD 02/28/24 19:42:
I saw and evaluated the patient independently. I reviewed the resident�s note and agree with findings and plan as documented by Dr. Hoffman.
GENERAL: well developed, well nourished, male in no apparent distress
HEENT: NC/AT
HEART: irreg irreg
LUNGS : clear to auscultation bilaterally
ABDOM: soft, nontender, nondistended, + bowel sounds
EXT: no cyanosis, clubbing, or edema
NEUROLOGIC: grossly intact
Complete heart block causing dizziness, SOB--apprec cards--s/p temp pacer and now with permanent pacer/defib--cont toprol XL, lisinopril, aldactone
Chronic HFrEF--Diuretics discontinued--daily weights, I/Os
Paroxysmal Atrial Fibrillation/Flutter s/p Ablation---Patient not currently on anticoagulation due to noncompliance--Continue to monitor on telemetry--CHADS-VASC 1--will cont AC discussions as outpt
COPD--without acute exacerbation---Patient not currently on inhaler---Continue DuoNeb prn
Alcohol Use Disorder---Continue thiamine and folic acid--Continue MSAS protocol-- no signs of DTs
Nicotine Dependence--Continue Nicotine Patch--Discussed smoking cessation again prior to discharge
code status--FULL
DVT proph
Original Note:
Today's Communication/Plan
-
.
Assessment / Plan
Assessment / Plan
Complete heart block
-Cards on board, appreciate input
-Status post temporary pacemaker via R-IJ
-Plan for defibrillator placement today
-Per cardiology, start metoprolol extended release, lisinopril and spironolactone
Chronic HFrEF
-Diuretics discontinued
-Monitor Is&Os and Daily Weights-currently -400 mL today
Paroxysmal Atrial Fibrillation / Flutter s/p Ablation
-Patient not currently on anticoagulation due to noncompliance
-Continue to monitor on telemetry
COPD
-Patient not currently on inhaler
-Continue DuoNeb prn
Alcohol Use Disorder
-Continue thiamine and folic acid
-Monitor for alcohol withdrawal, currently asymptomatic
-Continue MSAS protocol
Nicotine Dependence
-Continue Nicotine Patch
-Discussed smoking cessation again prior to discharge
FULL/Lovenox
Anticipated Discharge: Within 24 hours
Subjective/Interval History
-
Date of Service: February 28, 2024
63-year-old male with past medical history of paroxysmal atrial fibrillation/flutter, status post ablation, and noncompliant on Eliquis, nonischemic cardiomyopathy, HFrEF, COPD, GERD, alcohol use disorder, presented to [facility] on 02/24
with shortness of breath and lightheadedness for 2 to 3 days. He was found to be bradycardic (heart rate in 20s) with complete heart block. Patient states he has not been compliant with any of his medications. He was placed on temporary external
pacemaker by cardiology and is planned to get defibrillator today. Overnight he reports no headaches, nausea, vomiting, chest pain, shortness of breath, abdominal pain, GI upset, numbness or tingling in extremities.
Objective Data
-
Vital Signs:
Vital Signs
Temp Pulse Resp BP Pulse Ox
98.3 F 79 18 121/84 99
02/28/24 07:43 02/28/24 07:43 02/28/24 07:43 02/28/24 07:43 02/28/24 07:43
I&O
02/27/24 02/28/24 02/29/24
06:59 06:59 06:59
Intake Total 1020 / 1020 660 / 660
Output Total 950 / 950 1000 / 1000
Balance 70 / 70 -340 / -340
Review of Systems
-
History Source: Patient
Constitutional: Reports No Symptoms
Respiratory: Reports No Symptoms
Cardiac: Reports No Symptoms
Abdomen/GI: Reports No Symptoms
Musculoskeletal: Reports No Symptoms
Skin: Reports No Symptoms
Neuro: Reports No Symptoms
Physical Exam
-
General: Well Developed, Well Nourished, No Apparent Distress, Comfortable and Conversant
HEENT: Normocephalic and Atraumatic
Respiratory: Clear to Auscultation
Cardiac: S1/S2 and Irregular Rhythm
GI: Soft, Nontender and Nondistended
Musculoskeletal: No Clubbing, No Cyanosis and No Edema
Skin: Warm and Dry
Neuro: AO x 3
Psych: Calm
Data Reviewed
-
Medical Tests (Nuc Med, Echo etc): Report Reviewed by me
Labs: Labs Reviewed by me and Discussed with Physician
--- NOTE | 2024-02-28 10:52 | W.ICD.CONTRA ---
Post ICD/MANAGER SPECIALTY-D
-
History of TN?: No
LV Function
Left ventricular function study result?: Ejection Fraction </= 35%
ACEI/ARB/ARNI
Patient already on ACEI/ARB/ARNI: No
Beta-Kera
Patient already on Beta Kera: Yes
--- NOTE | 2024-02-28 12:30 | PTCARENOTE ---
Patient out of EP labor service representative: report received from EP labor service representative. Left upper chest pressure dressing cdi: AICD/PPM DDDR mode 60 to 130bpm with vt rate 180. V paced 1:1 on arrival. Left arm immobilizer instructions understanding and restrictions taught
through teach back method. Room air. Oriented x 3. Denies pain.
[2024-02-28] MEDS: THIAMINE INJECTION 200 MG IV (12:42)
[2024-02-28] MEDS: LOPRESSOR 12.5 MG PO ×2 (12:42→19:58)
[2024-02-28] MEDS: NICODERM TRANSDERMAL 14 MG TRANSDERM (12:45)
[2024-02-28] MEDS: FOLVITE 1 MG PO (12:46)
[2024-02-28 15:46] LABS: Lyme Antibody Screen, EIA Negative (Negative)
--- NOTE | 2024-02-28 16:00 | PTCARENOTE ---
No acute changes. Vitals stable. V paced 1:1 atrial sensed. See flowrecord for pain management documentation
[2024-02-28] MEDS: PERCOCET 5/325 1 TABLET PO ×2 (16:10→20:53)
[2024-02-28] MEDS: ANCEF 5 IV ×2 (16:11→23:42)
--- NOTE | 2024-02-28 16:32 | ITS.CL.ICD ---
Snag Grinder - ICD
Implantable Cardioverter Defibrillator
Procedure Report:
Date of Procedure: February 28, 2024.
Procedures: BATTER MIXER HELPER - ICD implant (cardiac resynchronization ICD). Removal of temporary pacing wire and it's R IJ sheath.
Indication: The patient has a known dilated nonischemic cardiomyopathy (LVED volume 175 mL on nuclear study 11/2021 and no CAD at cath 11/2021) with a chronic bifascicular heart block (RBBB/LAFB, QRS 174 ms) and LVEF of 30-35% today who presented
with dizziness and dyspnea and complete heart block with an escape rate of 35 bpm on 02/25/2024.
Performing physician: Tommy Spangler MD, [facility].
Implants:
Pulse Generator: Medtronic; Model# [id number]; Serial# [id number].
Atrial Lead: Medtronic: Model# 5076-52cm; Serial# [id number].
Right Ventricular Lead: Medtronic; Model# [id number]; Serial# [id number].
Resynchronization Ventricular Lead: Medtronic; Model# 3830-69cm; Serial# [id number].
Technique: A time out was performed. A 10 mL upper extremity venogram demonstrated patent left cephalic, axillary, and subclavian veins. The procedure site was identified. The patient was anesthetized by the anesthesia service. Preoperative
cefazolin was administered. The patient was prepped and draped in the usual fashion. Local anesthetic was applied to the left prepectoral subcutaneous tissue. A 3 inch incision was made along the left deltopectoral groove. Dissection was carried to
the fascia. The left cephalic vein was easily isolated and proximal and distal control with 2-0 Vicryl suture. Using a micropuncture needle to access the cephalic vein under direct visualization a hydrophilic glide type wire was advanced into the
central circulation. A 7 Fr introducer was placed and the glide wire was replaced with three 0.35 J wires to allow a retained guidewire technique to place the pacing/defibrillation leads. The leads were introduced with hemostatic peel away
introducer sheaths. The right ventricular defibrillation lead was placed at the right ventricular apical septum. I chose to proceed with conduction system lead to provide resynchronization. The lead was placed using utilizing the Rumble His
delivery catheter ([id number]) that was advanced to the left bundle area as confirmed by fluoroscopy in the [place] and [place] projections. The lead tip was advanced. PVC morphology was reviewed. When a satisfactory location was identified (W pattern
observed) the lead was screwed into position with serial turns. Septal engagement was confirmed with gentle torque applied to the guide sheath. After each series of turns (2-3) unipolar sensed morphology and impedance, and paced morphology of V1 was
analyzed. The lead was further advanced until satisfactory morphology and electrical characteristics were confirmed. The resynchronization lead was placed in the third location evaluated. The long guiding sheath was cut and removed from the RV
without change in lead position, impedance, sensing, or capture. The ventricular lead was secured to the pectoralis muscle and fascia with two 0-silk sutures. The atrial lead was then placed in the right atrial appendage. The atrial lead was secured
to the pectoralis muscle and fascia with two 0-silk sutures. 8 volt pacing did not capture the diaphragm from any lead. A subcutaneous pocket was created with Bovie cautery. Hemostasis was excellent.The leads were appropriately attached to the
device. The pocket was irrigated with antibiotic solution. The device and leads were placed in the pocket. The incision was closed in three layers with absorbable suture. Steri-strips and a silver impregnated dressing were placed. Estimated blood
loss was 5 ml. Once the ICD was in place the R IJ placed temporary pacing wire and its sheath were removed on fluoroscopic control. There were no complications. Fluoroscopy: time 8.3 minutes and DAP 3.69 GyCM2. The device was then interrogated
after skin closure.
System Analysis:
RA lead: P: 4.6 mV; Threshold: 0.875 V @ 0.4 ms; Impedance: 620 ohms.
Defibrillation lead: R: 7 mV; Threshold: 0.5 V @ 0.4 ms; Impedance: 420 ohms.
Resynchronization lead: R: 8 mV; Threshold: 0.6 V @ 0.4 ms; Impedance: 740 ohms.
Final Programming: Tachy: VT/VF:188 bpm; Koko: DDDR 60-120 bpm.
Conclusion: Uncomplicated Biventricular ICD implant. The BiV ICD system is MRI safe/conditional.
Recommendation: Routine post BiV ICD care.
cc: Alem Adams MD and Ashlee Damon MD
--- NOTE | 2024-02-28 17:15 | CM ---
spoke with pt in room, he is prev indep, lives with his ex- ( tells me they are but living in the home) in a 2 story home with 4 steps to enter. he also tells me that he has not had insurance for about 8 months and was enrolled in the
exchangesbut could no longer afford it. he is a contractor. plan is for [employer] ( medical assist) to speak to pt to assess if he qualifies for MA. Dr Spangler aware.
--- NOTE | 2024-02-28 17:20 | W.DCSUMMARY ---
Addendum entered and electronically signed by Alem Lundberg MD 02/29/24 18:43:
Read, reviewed, and agree. See same day progress note for additional details. Time spent coordinating care, DC planning, review of DC plan of care with resident, transition of care, review of records in EMR, med rec, consults, notes, d/w
consultants, nursing, family, and CM = 30 minutes
Original Note:
Discharge Summary
Discharge Data
Date of Admission: 02/25/24
Date of Discharge: 02/29/24
Total time spent discharging patient (in min): 30
-
Pending Results: No
Additional Pending Results:
Follow-up blood work requested to be completed within 1 week of discharge
Hospital Course
Presenting Complaint: Dyspnea and lightheadedness
Diagnosis of admission: Complete heart block
63-year-old male with past medical history of paroxysmal atrial fibrillation/flutter, status post ablation, noncompliant on Eliquis, nonischemic cardiomyopathy, HFrEF, COPD, GERD, alcohol use disorder, presented to [facility] on 02/24 with
shortness of breath and lightheadedness for 2 to 3 days. He was found to be bradycardic (heart rate in 20s) with complete heart block. Patient states he has not been compliant with any of his medications. Echo showed ejection fraction decreased
from 44% to 30 to 35%. He was placed on temporary external pacemaker by cardiology in R-IJ and underwent placement of defibrillator on 02/27. A 3-lead Medtronic cardiac resynchronization ICD implant was placed, with resynchronization lead being a
left bundle pacing lead. Since patient is without health insurance, cardiology recommended use of metoprolol ER, lisinopril and spironolactone.
1.Complete heart block
Status post temporary pacemaker via R-IJ, now converted to placement of ICD
Start metoprolol ER, lisinopril and spironolactone with good Rx coupons
2.chronic HFrEF
Start spironolactone
3. Paroxysmal atrial fibrillation/flutter status post ablation
Follow-up with cardiology outpatient to discuss starting anticoagulation
4. COPD
Restart inhaler as needed
5.alcohol use disorder
Continue thiamine and folate supplementation at home
6.nicotine dependence
Continue nicotine patch at home
Imaging reviewed
Echo (02/27)
CONCLUSIONS
Normal left ventricular chamber size. Moderately reduced left ventricular
systolic function.
LV ejection fraction is 30- 35% by visual estimation with Contrast imaging.
Global hypokinesis.
Stage I diastolic dysfunction suggestive of abnormal relaxation.
Normal right ventricular size and function.
No significant valvular disease.
Compared to the prior on 01/11/2023, the ejection fraction has decreased from
44% to 30 to 35%.
Discharge Plan
-
Patient Disposition: Home (Routine Discharge)
Discharge Diagnosis/Procedures: Bi-V ICD implant
Condition: Fair
Diet: As tolerated and Regular
Activity: As tolerated
Driving Restrictions: No driving for 1 week
Stand Alone Forms: DC Inst - Implanted Device
Referrals:
Jacobo Cason MD [Active] - 03/08/24 10:40 am (Post device incision check appointment)
Ashlee Damon MD [Family Provider] -
Additional Discharge Medication Instructions: Please complete blood work within 1 week of discharge and follow-up with primary care
Prescriptions:
New
acetaminophen 325 mg Tablet
650 mg PO Q4HPRN PRN (Reason: mild pain/ fever>100.5F) 5 Days Qty: 30 0RF
nicotine 14 mg/24 hr Patch 24 Hour
14 mg transdermal DAILY 30 Days Qty: 30 2RF
ipratropium-albuterol 0.5 mg-3 mg(2.5 mg base)/3 mL Solution For Nebulization
3 ml inhalation R Q4HPRN PRN (Reason: shortness of breath/wheeze) 30 Days Qty: 1 0RF
thiamine HCl (vitamin B1) 100 mg Tablet
100 mg PO BID 30 Days Qty: 60 2RF
spironolactone 25 mg Tablet
12.5 mg PO DAILY 30 Days Qty: 15 2RF
folic acid 1 mg Tablet
1 mg PO DAILY 30 Days Qty: 30 2RF
metoprolol succinate 25 mg Tablet Extended Release 24 Hr
25 mg PO DAILY 30 Days Qty: 30 2RF
lisinopril 2.5 mg Tablet
2.5 mg PO DAILY 30 Days Qty: 30 2RF
Continued
melatonin 3 mg Tablet
3 mg PO HS PRN (Reason: insomnia)
Discontinued
metoprolol succinate 25 mg Tablet Extended Release 24 Hr
25 mg PO DAILY
Eliquis 5 mg Tablet
5 mg PO BID
Discharge Orders:
Discharge Patient (As Directed); Ordered 02/29/24
Ordered By: Pedro Hoffman
Care Plan Goals
Care Plan Goals:
Problem: Readiness for enhanced knowledge related to diagnosis and treatment plan
Goal: Understand your diagnosis and treatment plan needs, including medications if applicable.
Instructions: Know your diagnosis, underlying causes and treatment plan options, including medications if applicable. Consult with your health care team to learn about your diagnosis and treatment plan, including medications if applicable.
Discharge Date and Time
Print Language: MACEDONIAN
[2024-02-28] MEDS: LOVENOX 40 MG SC (17:39)
[2024-02-28] MEDS: VITAMIN B1 100 MG PO (19:58)
--- NOTE | 2024-02-28 20:00 | PTCARENOTE ---
Received pt from [facility] pt resting comfortably in chair. pt is walking independently. pt is AAOx4. pt stated pain is 4/10, see MAR. 100% V paced on monitor. VSS. heart sounds audible, radial and DP pulses palpable, no edema noted, PPM/ACID placed
today, see worklist for settings. lungs diminished at b/l bases, spo2 99% on RA. + BSx 4 quadrants, abdomen soft non tender. pt voiding clear yellow urine without difficulty. left chest PPM site dressing clean, dry, and intact, arm immobilizer on.
PIV maintained. plan is to be d/c to home tomorrow.
[2024-02-28] MEDS: DESYREL 12.5 MG PO (20:53)
[2024-02-29] VITALS (7 sets, daily range): BP systolic 92–124; BP diastolic 60–84; BMI 22.8
--- NOTE | 2024-02-29 | PTCARENOTE ---
Pt assessment unchanged. 100% paced on monitor. VSS. pt resting comfortably in bed. call ahumada within reach. will continue to monitor.
[2024-02-29] MEDS: PERCOCET 5/325 1 TABLET PO ×3 (02:12→12:48)
--- NOTE | 2024-02-29 04:00 | PTCARENOTE ---
Pt assessment unchanged. pt resting comfortably in bed. labs drawn and sent. EKG obtained. call ahumada within reach. will continue to monitor.
[2024-02-29 04:22] LABS: Hematocrit 27.7 % (39.0-52.0); Hemoglobin 8.8 g/dL (13.0-18.0); Mean Corp Hgb Conc. 31.8 g/dL (33.0-37.0); Mean Corpuscular Hgb 32.4 pg (27.0-31.0); Mean Corpuscular Volume 101.8 fL (80.0-94.0); Mean Platelet Volume 10.4 fL (7.4-10.4); Platelet Count 96 10^3/uL (130-400); Red Blood Cell Count 2.72 10^6/uL (4.70-6.10); Red Cell Dist. Width 14.7 % (11.5-14.5); White Blood Cell Count 7.9 10^3/uL (4.8-10.8)
[2024-02-29 05:24] LABS: Blood Urea Nitrogen 15 mg/dl (9-20); Calcium 8.1 mg/dl (8.4-10.2); Carbon Dioxide 20 mmol/L (22-30); Chloride 108 mmol/L (98-107); Estimated Creatinine Clearance 91 ml/min; Glucose 84 mg/dl (70-99); Sodium 138 mmol/L (135-145); eGFR > 60.00
--- NOTE | 2024-02-29 07:30 | PTCARENOTE ---
Assumed care of patient from deck steward RN. AAO x 3. V paced on monitor. Lt Upper chest wall dressing c,d,i. Immobilizer in place. Room air 100%, Pain well managed with percocet. No edema appreciated. Ambulating in room w/o issue.
[2024-02-29] MEDS: LOPRESSOR 12.5 MG PO (07:58)
[2024-02-29] MEDS: NICODERM TRANSDERMAL 14 MG TRANSDERM (07:58)
[2024-02-29] MEDS: FOLVITE 1 MG PO (08:00)
[2024-02-29] MEDS: VITAMIN B1 100 MG PO (08:00)
--- NOTE | 2024-02-29 08:00 | PTCARENOTE ---
Assumed care of patient from night cleaner RN. AAO x 3. V paced on monitor. RT Upper chest wall dressing c,d,i. Immobilizer in place. Room air 100%, Pain well managed with percocet. No edema appreciated. Ambulating in room w/o issue.
--- NOTE | 2024-02-29 08:33 | W.PN.UPDATE ---
Update Note
Progress Note Update
Pt seen an exmined. EKG perfect, QRS 116 ms!! Site good, mild fullness, no bleeding. CXR/tele good.
OK for home.
Ideally will be wiling to take and can afford meds (no insurance so copay cards wont work)
- Metoprolol succinate (not tartrate) 25 mg daily
- Lisinopril 2.5 daily
- Aldactone 25 mg tab, take 1/2 tab (12.5 mg) daily
- Eliquis 5 bid (ok to start in 48 hrs)
- I don't think he needs a loop diuretic
- As outpatient meds should be increased over weeks to a few months to goal doses: lisinopril goal 40 daily, metoprolol ER (succinate) 200 daily, spironolactone (Aldactone) 25 or even 50 daily.
- We will arrange f/u in our office
- Outpatient anemia evaluation makes sense
Should have BMP in 2 and 4 weeks
--- NOTE | 2024-02-29 08:36 | W.PN.HOSP.TC ---
Addendum entered and electronically signed by Alem Lundberg MD 02/29/24 18:41:
I saw and evaluated the patient independently. I reviewed the resident�s note and agree with findings and plan as documented by Dr. Hoffman.
GENERAL: well developed, well nourished, male in no apparent distress
HEENT: NC/AT
HEART: irreg irreg
LUNGS : clear to auscultation bilaterally
ABDOM: soft, nontender, nondistended, + bowel sounds
EXT: no cyanosis, clubbing, or edema
NEUROLOGIC: grossly intact
Complete heart block causing dizziness, SOB--apprec cards--s/p temp pacer and now with permanent pacer/defib--cont toprol XL, lisinopril, aldactone
Chronic HFrEF--Diuretics discontinued--daily weights, I/Os
anemia--could be chronic disease but also contributing are blood draws and IVF administration--no acute bleeding--f/u with GI as outpt ([facility] if discussing Anticoagulation)
Paroxysmal Atrial Fibrillation/Flutter s/p Ablation---Patient not currently on anticoagulation due to noncompliance--Continue to monitor on telemetry--CHADS-VASC 1--will cont AC discussions as outpt
COPD--without acute exacerbation---Patient not currently on inhaler---Continue DuoNeb prn
Alcohol Use Disorder---Continue thiamine and folic acid--Continue MSAS protocol-- no signs of DTs
Nicotine Dependence--Continue Nicotine Patch--Discussed smoking cessation again prior to discharge
code status--FULL
DVT proph
OK for d/c
Original Note:
Today's Communication/Plan
-
.
Assessment / Plan
Assessment / Plan
63-year-old male with past medical history of paroxysmal atrial fibrillation/flutter, status post ablation, and noncompliant on Eliquis, nonischemic cardiomyopathy, HFrEF, COPD, GERD, alcohol use disorder, presented to [facility] on 02/24
with shortness of breath and lightheadedness for 2 to 3 days, now s/p permanent defib placement.
Complete heart block
-Cards on board, appreciate input
-Status post temporary pacemaker via R-[facility]
-Permanent defibrillator placed on 02/27
-Per cardiology, start metoprolol extended release, lisinopril and spironolactone
Chronic HFrEF
-Spironolactone restarted for diuresis
-Monitor Is&Os and Daily Weights-currently -400 mL today
Anemia
- Hemoglobin previously at 10.3 on 02/26, today at 8.8
-Due to recent procedure and fluids given, value could be diluted
� Prescription given for outpatient labs to be completed within 1 week of discharge
Paroxysmal Atrial Fibrillation / Flutter s/p Ablation
-Patient not currently on anticoagulation due to noncompliance, continue discussion regarding anticoagulation outpatient
-Continue to monitor on telemetry
COPD
-Restart inhaler as needed
Alcohol Use Disorder
-Continue thiamine and folic acid
-Monitor for alcohol withdrawal, currently asymptomatic
-Continue MSAS protocol
Nicotine Dependence
-Continue Nicotine Patch
-Discussed smoking cessation again prior to discharge
FULL/Lovenox
Anticipated Discharge: Today
Subjective/Interval History
-
Date of Service: February 29, 2024
63-year-old male with past medical history of paroxysmal atrial fibrillation/flutter, status post ablation, and noncompliant on Eliquis, nonischemic cardiomyopathy, HFrEF, COPD, GERD, alcohol use disorder, presented to [facility] on 02/24
with shortness of breath and lightheadedness for 2 to 3 days, now s/p permanent defib placement. Overnight he reports no acute events other than mild discomfort from sling placement. He has had a bowel movement since procedure and is passing
urine. He reports no other symptoms of concern
Objective Data
-
Labs:
Laboratory Results
02/29/24
03:56
WBC 7.9
Hgb 8.8 L
Hct 27.7 L
Plt Count 96 L
Sodium 138
Potassium 4.0
Chloride 108 H
Carbon Dioxide 20 L
BUN 15
Creatinine 0.9
Glucose 84
Calcium 8.1 L
Vital Signs:
Vital Signs
Temp Pulse Resp BP Pulse Ox
97.9 F 91 16 121/83 100
02/29/24 07:47 02/29/24 07:58 02/29/24 07:47 02/29/24 07:58 02/29/24 07:47
I&O
02/28/24 02/29/24 03/01/24
06:59 06:59 06:59
Intake Total 660 / 660 60 / 60
Output Total 1000 / 1000 450 / 450
Balance -340 / -340 -390 / -390
Review of Systems
-
History Source: Patient
All other systems: Reviewed and negative
Physical Exam
-
General: Well Developed, Well Nourished, No Apparent Distress, Comfortable and Conversant
HEENT: Normocephalic and Atraumatic
Respiratory: Clear to Auscultation
Cardiac: Regular Rhythm and S1/S2
GI: Soft, Nontender and Nondistended
Musculoskeletal: No Clubbing, No Cyanosis and No Edema
Skin: Warm and Dry
Neuro: AO x 3
Psych: Calm
Data Reviewed
-
Diagnostic Radiology: Report Reviewed by me
Medical Tests (Nuc Med, Echo etc): Report Reviewed by me
Labs: Labs Reviewed by me
Old Records: Reviewed
[2024-02-29] MEDS: ZESTRIL 2.5 MG PO (09:11)
--- NOTE | 2024-02-29 11:55 | PTCARENOTE ---
Ambulating in hallway w/o issue. Lt chest wall site unchanged from prior. Mild swelling at site persists. Denies pain at present. Assessment otherwise unchanged from prior.
[2024-02-29 12:36] LABS: Lyme Disease DNA by PCR Not Detected; Lyme Source Serum
--- NOTE | 2024-02-29 14:58 | PTCARENOTE ---
Discharge instructions reviewed with patient, questions answered. Limb restrictions reinforced and smoking cessation strongly encouraged.
== END 2024-02-29 15:41 | disposition home or self-care (01) | DRG 277 ==
LOC: CVICU 19:05
PROVIDERS: Internal Medicine Cardiovascular Disease; Nurse Practitioner; Physician Assistant Medical; ADMITTING PHYSICIAN Hospitalist; ATTENDING PHYSICIAN Internal Medicine; EMERGENCY PHYSICIAN Emergency Medicine; FAMILY PHYSICIAN Internal Medicine; OTHER PHYSICIAN Internal Medicine Cardiovascular Disease
PROC: 5A1223Z Performance of Cardiac Pacing, Continuous (ICD-10-PCS; 2024-02-25)
PROC: 02HK3KZ Insertion of Defibrillator Lead into Right Ventricle, Percutaneous Approach (ICD-10-PCS; 2024-02-28)
PROC: 02H63KZ Insertion of Defibrillator Lead into Right Atrium, Percutaneous Approach (ICD-10-PCS; 2024-02-28)
PROC: 0JH609Z Insertion of Cardiac Resynchronization Defibrillator Pulse Generator into Chest Subcutaneous Tissue and Fascia, Open Approach (ICD-10-PCS; 2024-02-28)
PROC: 02HL3KZ Insertion of Defibrillator Lead into Left Ventricle, Percutaneous Approach (ICD-10-PCS; 2024-02-28)
PROC: 02PA3MZ Removal of Cardiac Lead from Heart, Percutaneous Approach (ICD-10-PCS; 2024-02-28)
DX: I44.2 Atrioventricular block, complete (principal); I42.8 Other cardiomyopathies; I50.22 Chronic systolic (congestive) heart failure; J44.9 Chronic obstructive pulmonary disease, unspecified; I48.0 Paroxysmal atrial fibrillation; I11.0 Hypertensive heart disease with heart failure; F17.210 Nicotine dependence, cigarettes, uncomplicated; I45.2 Bifascicular block; F10.10 Alcohol abuse, uncomplicated; I48.92 Unspecified atrial flutter; E78.5 Hyperlipidemia, unspecified; R00.1 Bradycardia, unspecified; K21.9 Gastro-esophageal reflux disease without esophagitis; I47.29 Other ventricular tachycardia; D63.8 Anemia in other chronic diseases classified elsewhere; Z59.71 Insufficient health insurance coverage; Z91.148 Patient's other noncompliance with medication regimen for other reason; Z90.01 Acquired absence of eye; Z87.820 Personal history of traumatic brain injury
CPT/HCPCS: 33210; 33249; 71045; 80048; 80053; 83735; 84100; 84443; 84484; 85025; 85027; 85610; 85652; 85730; 86140; 86618; 87040; 87476; 93005; 93306; 99291; 99406; C1769; C1777; C1882; C1887; C1892; C1898; Q9950; Q9967

== ENCOUNTER → 2024-03-03 09:54 | Outpatient (REF) | payer OTHER, SELFPAY ==
[2024-03-03 11:46] LABS: % Eosinophils 6.1 % (0-6); % Immature Granulocytes 0.5 % (0-0.5); % Lymphocytes 23.2 % (20.5-51.1); % Monocytes 13.1 % (1.7-9.3); % Neutrophils 56.1 % (42.2-75.2); Absolute Basophils 0.1 10^3/uL (0-0.2); Absolute Eosinophils 0.5 10^3/uL (0-0.7); Absolute Lymphocytes 1.7 10^3/uL (1.2-3.4); Absolute Neutrophils 4.1 10^3/uL (1.4-6.5); Hemoglobin 9.9 g/dL (13.0-18.0); Mean Corp Hgb Conc. 30.9 g/dL (33.0-37.0); Mean Corpuscular Hgb 31.9 pg (27.0-31.0); Mean Corpuscular Volume 103.2 fL (80.0-94.0); Mean Platelet Volume 9.4 fL (7.4-10.4); Nucleated Red Blood Cells % 0 % (-); Platelet Count 211 10^3/uL (130-400); Red Cell Dist. Width 14.7 % (11.5-14.5); White Blood Cell Count 7.3 10^3/uL (4.8-10.8)
[2024-03-03 13:00] LABS: Blood Urea Nitrogen 17 mg/dl (9-20); Calcium 9.4 mg/dl (8.4-10.2); Carbon Dioxide 24 mmol/L (22-30); Chloride 106 mmol/L (98-107); Glucose 77 mg/dl (70-99); Iron 108 ug/dl (49-181); Magnesium 1.8 mg/dl (1.6-2.3); Potassium 5.2 mmol/L (3.5-5.1); Sodium 142 mmol/L (135-145); eGFR > 60.00
[2024-03-03 13:10] LABS: Percent Saturation 40 % (20-50); Total Iron Binding Capacity 266 ug/dl (261-462)
[2024-03-03 15:04] LABS: Ferritin 58.3 ng/ml (17.9-464.0)
[2024-03-03 15:35] LABS: Vitamin B12 309 pg/ml (239-931)
== END ==
LOC: REG 09:54
PROVIDERS: FAMILY PHYSICIAN Internal Medicine
DX: R06.02 Shortness of breath (principal)
CPT/HCPCS: 36415; 80048; 82607; 82728; 82746; 83540; 83550; 83735; 85025